=== PATIENT | female | born 1980 | race African-American/Black ===

== ENCOUNTER 2018-12-04 07:57 | Outpatient (CLI) | payer BC ==
--- NOTE | 2018-12-04 10:57 | MRI ---
LUMBAR SPINE MRI WITHOUT CONTRAST: DATE: 12/04/2018. COMPARISON: 09/26/2016. HISTORY: Lumbar radiculopathy, low back pain radiating into the right lower extremity. TECHNIQUE: Multiplanar, multisequence MR imaging of the lumbar spine provided without contrast. FINDINGS: The sagittal STIR imaging demonstrates no focal area of osseous marrow edema. Lumbar vertebral body height and alignment appears within normal limits. On the basis of 5 lumbar-type vertebral bodies, conus medullaris terminates at the L1-2 level. T12-L1: Unremarkable. L1-2: Mild bilateral facet hypertrophy with no central canal or neural foraminal stenosis. L2-3: Unremarkable aside from mild bilateral facet hypertrophy. L2-3: There is mild bilateral facet hypertrophy with no significant central canal or neural foramina l stenosis. L4-5: Mild bilateral facet hypertrophy. No central canal or neural foraminal stenosis. L5-S1: Mild facet hypertrophy on the right. No significant central canal or neural foraminal stenos is. The imaged retroperitoneal structures appear unremarkable. IMPRESSION: No significant central canal or neural foraminal stenosis. No significant interval rodriguez . POS: [facility]
== END 2018-12-04 07:58 | disposition home or self-care (01) ==
LOC: BICMRI 07:57
PROVIDERS: ATTEND Nurse Practitioner Family
DX: M54.17 Radiculopathy, lumbosacral region (principal)
CPT/HCPCS: 72148

== ENCOUNTER 2019-05-18 12:04 | Day surgery (SDC) | payer BC ==
[2019-05-17 12:22] VITALS: BMI 28.3
[2019-05-18] MEDS ORDERED: CEFAZOLIN 1 GM VIAL ONE (12:48)
[2019-05-18] MEDS ORDERED: Sodium Chloride 0.9% 100 ML ONE (12:48)
[2019-05-18] MEDS ORDERED: Bupivacaine HCl 0.5%/Epinephrine 1:200,000/PF 30 ml Vial ONE (13:31)
[2019-05-18] MEDS ORDERED: Fentanyl 100 MCG/2 ML VIAL ONE (13:33)
[2019-05-18] MEDS ORDERED: Midazolam HCl 2 mg/2 ml Vial ONE (13:33)
[2019-05-18] MEDS ORDERED: Propofol 500 MG/50 ML VIAL ONE (13:35)
[2019-05-18] MEDS ORDERED: Ketamine 50 MG/ML (10ML VIAL) ONE (13:35)
--- NOTE | 2019-05-18 16:08 | OP ---
DATE OF PROCEDURE: 05/18/2019 PREOPERATIVE DIAGNOSES: 1. Chronic pain syndrome, G89.4. 2. Complex regional pain syndrome, type 2, right lower extremity, G57.71. POSTOPERATIVE DIAGNOSES: 1. Chronic pain syndrome, G89.4. 2. Complex regional pain syndrome, type 2, right lower extremity, G57.71. PROCEDURES PERFORMED: 1. Spinal column stimulator/DRG generator implant x1. Code; 98919. 2. Spinal column stimulator/DRG lead implant x2. Code; 46637 x2. SPECIMEN REMOVED: None. ESTIMATED BLOOD LOSS: None. DESCRIPTION OF PROCEDURE: The patient was taken to the procedure room and placed prone on the procedure room table. A time-out was performed. The back was prepped with ChloraPrep, and sterile drapes were applied. Using fluoroscopies, we located the right L5 and the right S1 foramina. We used a contralateral paramedian technique with a 14-gauge supplied Touhy needle to gain access to the epidural space with loss of resistance to air. Once we gained access, we inserted the DRG electrode with sheath into the epidural space and passed it easily and smoothly through the right L5 foramen. The sheath was removed keeping the leads intact. We then performed a double loop as an anchor. We then performed the same procedure using a right S1 access and placing the DRG electrode in the S1 foramen on the right and creating a double loop as an anchor. A pocket was made by anesthetizing the skin over the left upper buttock with 0.5% Marcaine with epinephrine. We made an incision using a 10-blade scalpel and blunt dissected this down to Richy fascia. This was then blunt dissected superiorly and inferiorly to make a pocket. We used a tunneling device to make a pocket between the lead puncture sites and the pocket site. The sheath and needles were removed taking care not to move the leads. The leads were placed through the tunneling device and placed into the pocket. They were connected to the DRG battery generator and torqued down. Impedances were checked, which were all good. These were tucked into the battery pocket site, and all fascial layers were approximated using 2-0 Vicryl suture in simple interrupted fashion. The skin layer was approximated using a subcuticular stitch using a 3-0 Rapide Vicryl suture. Dermabond was used over this, and a sterile 4x4 was placed over this and taped down. Once the Dermabond was dried, the patient was taken to the PACU under stable condition. Job ID: [id number]
[2019-05-18] MEDS ORDERED: PROPOFOL 200 MG/20 ML VIAL ONE (17:21)
--- NOTE | 2019-05-18 18:40 | RAD ---
XR Lumbar Spine 2 Or 3 View History: Dorsal column stimulator placement Comparison: Radiograph October 2018 Findings: 2 images were obtained from the operating room. Impression: Fluoroscopy for surgical purposes. Total fluoroscopy time 274.4 seconds.
== END 2019-05-18 15:48 | disposition home or self-care (01) ==
LOC: SDC 12:04
PROVIDERS: ATTEND Specialist
PROC: 00HU3MZ Insertion of Neurostimulator Lead into Spinal Canal, Percutaneous Approach (ICD-10-PCS; principal; 2019-05-18)
PROC: 0JH70BZ Insertion of Single Array Stimulator Generator into Back Subcutaneous Tissue and Fascia, Open Approach (ICD-10-PCS; principal; 2019-05-18)
DX: G89.4 Chronic pain syndrome (principal); G57.71 Causalgia of right lower limb; M47.27 Other spondylosis with radiculopathy, lumbosacral region; M46.1 Sacroiliitis, not elsewhere classified; Z87.891 Personal history of nicotine dependence; Z79.899 Other long term (current) drug therapy; Z88.8 Allergy status to other drugs, medicaments and biological substances
CPT/HCPCS: 72100; 76000; 93005; 93010; C1767; J0670; J0690; J2250; J2704; J3010; J3490

== ENCOUNTER 2020-07-19 13:08 | Outpatient (CLI) | payer BC ==
--- NOTE | 2020-07-19 14:16 | CT ---
CT LUMBAR SPINE 07/19/20 PROVIDED CLINICAL HISTORY: Back pain. COMPARISON: Comparison is made with the lumbar spine MRI dated 12/04/18. FINDINGS: Five lumbar type vertebral bodies are demonstrated. Lumbar alignment appears normal. Vertebral body h eights and intervertebral disc space heights appear maintained. No lytic or blastic bony lesions are seen. Neural stimulator wires are demonstrated entering via the right L5 foramen and L5-S1 interspino us regions, with tips terminating adjacent to the right L5 and right S1 neural foramina. There is no significant central canal or foraminal narrowing. Mildly indistinct appearance to the cranberry grower nial aspects of the synovial portions of both sacroiliac joints on the axial images is felt artifactu al, without evidence for sacroiliac joint abnormality on the coronal images. The visualized extraspinal soft tissues demonstrate an unremarkable unenhanced CT appearance. IMPRESSION: No significant central canal or foraminal narrowing is apparent by CT. POS: [facility]
== END 2020-07-19 13:09 | disposition home or self-care (01) ==
LOC: BICCT 13:08
PROVIDERS: ATTEND Nurse Practitioner Family
DX: M54.17 Radiculopathy, lumbosacral region (principal)
CPT/HCPCS: 72131

== ENCOUNTER 2020-07-27 11:37 | Outpatient (CLI) | payer OTHER ==
--- NOTE | 2020-07-27 13:50 | RAD ---
LUMBAR SPINE: 07/27/20 HISTORY: Disability. COMPARISON: 10/28/18. Lumbar vertebrae maintain height and alignment. The disc spaces are normally maintained. No evidence of spondylolisthesis or spondylolysis. No interval change. Electronic device with leads overlie the L5 and S1 levels to the right of midline. IMPRESSION: Unremarkable lumbar spine. No change from prior exam. POS: [facility]
== END 2020-07-27 11:38 | disposition home or self-care (01) ==
LOC: BICRAD 11:37
PROVIDERS: ATTEND Internal Medicine
DX: Z02.71 Encounter for disability determination (principal)
CPT/HCPCS: 72100

== ENCOUNTER 2021-10-19 15:48 | Inpatient (IN) | payer BC ==
[2021-10-19] MEDS ORDERED: Naloxone HCl 2 mg/2 ml Syringe ONE (15:55)
[2021-10-19 16:19] LABS: Hemoglobin 9.6 g/dL (12.0-16.0); Mean Corpuscular HGB CONC 29.6 g/dL (32.0-36.0); Mean Corpuscular Hemoglobin 30.2 pg (27.0-31.0); Mean Platelet Volume 10.5 fL (7.4-10.4); Platelet Count 180 thou/uL (130-400); RBC Distribution Width 11.9 % (11.5-14.5); Red Blood Cell (RBC) Count 3.17 mill/uL (4.20-5.40); White Blood Cell (WBC) Count 9.1 thou/uL (4.8-10.8)
[2021-10-19 16:29] LABS: BHCG - Serum Negative (NEGATIVE); Pregs Control Background? CLEAR/WHITE (CLR/WHITE); Pregs Control Bar Appear? YES (CONTROL BAR)
[2021-10-19 16:34] LABS: Acetaminophen Less than 6.0 mcg/mL (10.0-30.0); Alcohol Less than 10 mg/dL (Less than 10); Salicylate Less than 8.0 mg/dL (15.0-30.0)
[2021-10-19 16:35] LABS: #Lymphocytes 1.2 thou/uL (1.20-3.40); #Neutrophils 6.9 thou/uL (1.40-6.50); %Basophils 0.2 % (0.0-1.0); %Eosinophils 0.3 % (0.0-10.0); %Lymphocytes 12.8 % (21.0-51.0); %Monocytes 10.5 % (0.0-10.0); %Neutrophils 76.3 % (42.0-75.0); Platelet Morphology Comment Appears Adequate; RBC Morphology Normal
[2021-10-19 16:42] LABS: Phosphorus 9.8 mg/dL (2.3-4.7)
[2021-10-19 16:48] LABS: Bilirubin Negative (Negative); Blood, Urine Negative (Negative); Clarity Clear (Clear); Glucose, Urine (Dipstick) Greater than 1000 mg/dL (Negative); Ketone, Urine 20 mg/dL (Negative); Leukocyte Negative Leu/uL (Negative); Nitrite Negative (Negative); Protein, Urine (Dipstick) Negative (Neg-Trace); Specific Gravity, Urine 1.017 (1.002-1.036); Urobilinogen Normal mg/dL (Less than 2)
[2021-10-19 16:55] LABS: Analyzer IN Cardio ER; Base Excess (BEa) -21.3 mEq/L (-2.0 to +3.0); Calcium, Ionized (arterial) 0.96 mmol/L (1.12-1.30); Carboxyhemoglobin (COHb) 0.1 gm% (0.0-3.0); Hemoglobin (Hb) 10.7 g/dL (12.0-16.0); O2 Tension (PaO2), arterial 196.6 mmHg (80.0-100.0); Potassium - ABG Lab 3.68 mmol/L (3.70-5.30)
[2021-10-19 16:57] LABS: ALV-art Gradient 58.725 mmHg (0-20); CO2 Tension 23.9 mmHg (35.0-45.0); Puncture Site LRA; pH, Arterial 7.09 (7.35-7.45)
[2021-10-19 17:00] LABS: Amphetamine Not Detected (NotDetected); Barbiturates Screen Not Detected (NotDetected); Benzodiazepine Screen Not Detected (NotDetected); Cocaine Metabolite Screen Not Detected (NotDetected); Methadone Not Detected (NotDetected); Methamphetamine Not Detected (NotDetected); Opiate Screen Not Detected (NotDetected); Oxycodone Screen Not Detected (NotDetected); Phencyclidine (PCP) Not Detected (NotDetected); THC/Cannabinoid Screen Not Detected (NotDetected); Tricyclic Screen Not Detected (NotDetected)
[2021-10-19] MEDS ORDERED: Sodium Bicarb 50 MEQ/50 ML Abboject 8.4% SYRINGE ONE (17:17)
[2021-10-19 17:25] LABS: ALT (SGPT) 19 U/L (8-55); AST (SGOT) 33 U/L (5-34); Albumin 1.9 g/dL (3.5-5.0); Alkaline Phosphatase 63 U/L (40-110); Anion Gap 38 mmol/L (10-20); BUN (Urea Nitrogen) 82 mg/dL (7.0-18.7); Bilirubin, Total 0.4 mg/dL (0.2-1.2); Calc. Creatinine Clearance 0 mL/min (70-130); Calcium 7.1 mg/dL (7.8-10.44); Carbon Dioxide 10 mmol/L (22-29); Chloride 92 mmol/L (98-107); Globulin 2.5 g/dL (2.4-3.5); Magnesium 3.5 mg/dL (1.6-2.6); Potassium 4.9 mmol/L (3.5-5.1); Protein, Total 4.4 g/dL (6.0-8.3); Sodium 135 mmol/L (136-145)
[2021-10-19 17:36] LABS: Glucose 1449 mg/dL (70-105)
[2021-10-19] MEDS ORDERED: INSULIN REGULAR IN 0.9 % NACL 100 UNIT/100 ML BAG ONE (17:49)
[2021-10-19 17:56] LABS: Lipase 3845 U/L (8-78)
[2021-10-19] MEDS ORDERED: NS 0.9% w/ 20 MEQ KCL 1,000 ML ONE (17:58)
[2021-10-19] MEDS ORDERED: Ondansetron PF 4 MG/2 ML Vial IVP PRN (18:00)
[2021-10-19] MEDS ORDERED: Ondansetron ODT 4 MG TAB SL PRN (18:00)
[2021-10-19] MEDS ORDERED: Acetaminophen 325 MG TAB PO PRN (18:00)
[2021-10-19] MEDS ORDERED: Sodium Chloride 0.9% 1,000 ML IV PRN ×4 (18:34)
[2021-10-19] MEDS ORDERED: Dextrose 5 %-0.45 % NaCl 1,000 ML IV PRN (18:34)
[2021-10-19] MEDS ORDERED: Guaifenesin DM 100-10/5 ML UDCUP PO PRN (18:34)
[2021-10-19] MEDS ORDERED: Bisacodyl 10 MG SUPP PR PRN (18:34)
[2021-10-19] MEDS ORDERED: Electrolyte Replacement Protocol 1 EACH IVPB ONE (18:34)
[2021-10-19] MEDS ORDERED: NS 0.9% w/ 20 MEQ KCL 1,000 ML IV PRN ×2 (18:34)
[2021-10-19] MEDS ORDERED: Electrolyte Replacement Protocol FS PRN (18:45)
[2021-10-19 19:16] LABS: Anion Gap 38 mmol/L (10-20); BUN (Urea Nitrogen) 79 mg/dL (7.0-18.7); Calc. Creatinine Clearance 0 mL/min (70-130); Calcium 6.9 mg/dL (7.8-10.44); Cardiac Risk 12.8 (Less than 4.5); Chloride 97 mmol/L (98-107); Cholesterol 205 mg/dl (< 200 Desired); HDL Cholesterol 16 mg/dL (>60 Neg Risk); LDL Cholesterol, Calculated 140 mg/dL; Potassium 4.6 mmol/L (3.5-5.1); Sodium 139 mmol/L (136-145); Triglycerides 245 mg/dL (Less than 150)
[2021-10-19 19:17] LABS: Lactic Acid 4.2 mmol/L (0.5-2.2)
[2021-10-19 19:18] LABS: SARS-CoV-2 NAA Rapid Test Not Detected (NotDetected)
[2021-10-19 19:22] LABS: Carbon Dioxide 9 mmol/L (22-29); Glucose 1231 mg/dL (70-105)
[2021-10-19] MEDS: Heparin 5,000 UNITS/ML VIAL SC SCH (20:23)
[2021-10-19 21:07] LABS: ALT (SGPT) 145 U/L (8-55); AST (SGOT) 360 U/L (5-34); Albumin 2.5 g/dL (3.5-5.0); Alkaline Phosphatase 89 U/L (40-110); Bilirubin, Direct 0.3 mg/dL (0.1-0.3); Bilirubin, Total 0.4 mg/dL (0.2-1.2); Glucose 961 mg/dL (70-105); Protein, Total 5.6 g/dL (6.0-8.3)
[2021-10-19 22:10] LABS: Base Excess -11.4 mEq/L (-2.0 to +3.0); Calcium, Ionized (venous) 0.91 mmol/L (1.16-1.32); Chloride (VBG) 110 mmol/L (98-106); Hemoglobin (Hb) 11.8 g/dL (11.7-15.5); Potassium (VBG) 4.26 mmol/L (3.70-5.30); Sodium 148.7 mmol/L (133-146); pH (venous) 7.34 (7.32-7.43)
[2021-10-19 22:16] LABS: Actual Bicarbonate (HCO3v) 13 mEq/L (22-28)
[2021-10-19 22:47] LABS: Anion Gap 31 mmol/L (10-20); BUN (Urea Nitrogen) 71 mg/dL (7.0-18.7); Calc. Creatinine Clearance 26 mL/min (70-130); Calcium 6.6 mg/dL (7.8-10.44); Carbon Dioxide 11 mmol/L (22-29); Chloride 110 mmol/L (98-107); Potassium 4.4 mmol/L (3.5-5.1); Sodium 148 mmol/L (136-145)
[2021-10-19 22:53] LABS: Band 26 % (5-11); Hemoglobin 11.6 g/dL (12.0-16.0); Lymphocytes 20 % (21-51); MDiff Complete? YES; Mean Corpuscular HGB CONC 33.1 g/dL (32.0-36.0); Mean Corpuscular Hemoglobin 30.5 pg (27.0-31.0); Mean Platelet Volume 10.2 fL (7.4-10.4); Neutrophil 54 % (42-75); Platelet Count 122 thou/uL (130-400); Platelet Morphology Comment Appears Decreased; RBC Distribution Width 11.8 % (11.5-14.5); Red Blood Cell (RBC) Count 3.81 mill/uL (4.20-5.40); White Blood Cell (WBC) Count 10.9 thou/uL (4.8-10.8)
[2021-10-19 22:58] LABS: Glucose 845 mg/dL (70-105)
[2021-10-19] MEDS ORDERED: Lactated Ringer's 1,000 ML IV SCH (23:00)
[2021-10-19] MEDS ORDERED: 1/2 NS w/KCL 20 mEq 1,000 ML IV SCH (23:45)
[2021-10-20 00:41] LABS: Glucose 760 mg/dL (70-105)
[2021-10-20] MEDS ORDERED: Norepinephrine 8 MG/0.9% NS 250 ML ONE (01:01)
[2021-10-20] MEDS ORDERED: Norepinephrine 8 MG/0.9% NS 250 ML IVPB SCH (01:15)
[2021-10-20 02:17] LABS: Glucose 750 mg/dL (70-105)
[2021-10-20 02:48] LABS: ALT (SGPT) 417 U/L (8-55); AST (SGOT) 1421 U/L (5-34); Albumin 2.3 g/dL (3.5-5.0); Alkaline Phosphatase 78 U/L (40-110); Anion Gap 30 mmol/L (10-20); BUN (Urea Nitrogen) 71 mg/dL (7.0-18.7); Bilirubin, Total 0.3 mg/dL (0.2-1.2); Calc. Creatinine Clearance 27 mL/min (70-130); Calcium 6.6 mg/dL (7.8-10.44); Carbon Dioxide 12 mmol/L (22-29); Chloride 112 mmol/L (98-107); Globulin 2.9 g/dL (2.4-3.5); Potassium 5.1 mmol/L (3.5-5.1); Protein, Total 5.2 g/dL (6.0-8.3); Sodium 149 mmol/L (136-145)
[2021-10-20 02:50] LABS: Glucose 780 mg/dL (70-105)
[2021-10-20 04:01] LABS: Anion Gap 29 mmol/L (10-20); BUN (Urea Nitrogen) 70 mg/dL (7.0-18.7); Calc. Creatinine Clearance 28 mL/min (70-130); Calcium 6.7 mg/dL (7.8-10.44); Carbon Dioxide 12 mmol/L (22-29); Chloride 111 mmol/L (98-107); Glucose 765 mg/dL (70-105); Potassium 5.2 mmol/L (3.5-5.1); Sodium 147 mmol/L (136-145)
[2021-10-20] MEDS: Sodium Chloride 0.45% 1,000 ML IV SCH ×6 (04:18→23:45)
[2021-10-20 04:40] LABS: Band 26 % (5-11); Lymphocytes 10 % (21-51); MDiff Complete? YES; Mean Corpuscular Hemoglobin 29.9 pg (27.0-31.0); Mean Corpuscular Volume 90.6 fL (78.0-98.0); Mean Platelet Volume 9.8 fL (7.4-10.4); Monocytes 6 % (0-10); Neutrophil 58 % (42-75); Platelet Count 152 thou/uL (130-400); RBC Distribution Width 11.7 % (11.5-14.5); Red Blood Cell (RBC) Count 3.67 mill/uL (4.20-5.40); White Blood Cell (WBC) Count 11.8 thou/uL (4.8-10.8)
[2021-10-20 05:03] LABS: Glucose 773 mg/dL (70-105)
[2021-10-20 05:11] LABS: Hemoglobin A1c Greater than 14.0 % (4.0-6.0)
[2021-10-20 05:46] LABS: Glucose 760 mg/dL (70-105)
[2021-10-20] MEDS ORDERED: Cefepime 1 GM in Sodium Chloride 0.9% 100 ML IVPB SCH (09:00)
[2021-10-20] MEDS ORDERED: FLU VACC QS2021-22(6MOS UP)/PF 60 MCG/0.5 ML SYRINGE IM ONE (09:00)
[2021-10-20] MEDS: Pantoprazole 40 MG VIAL IVP SCH (09:02)
[2021-10-20] MEDS: Heparin 5,000 UNITS/ML VIAL SC SCH ×2 (09:02→21:03)
[2021-10-20 09:13] LABS: Glucose 677 mg/dL (70-105)
[2021-10-20] MEDS ORDERED: Vancomycin HCl 1.25 GM in Premix Bag 1 BAG IVPB SCH (09:30)
[2021-10-20] MEDS ORDERED: Vancomycin HCl 1.25 GM in Sodium Chloride 0.9% 250 ML 250 ML IVPB SCH (10:00)
[2021-10-20 10:13] LABS: Glucose 633 mg/dL (70-105)
[2021-10-20 10:41] LABS: Glucose 570 mg/dL (70-105)
[2021-10-20 11:45] LABS: Anion Gap 27 mmol/L (10-20); BUN (Urea Nitrogen) 71 mg/dL (7.0-18.7); Calc. Creatinine Clearance 31 mL/min (70-130); Calcium 6.7 mg/dL (7.8-10.44); Carbon Dioxide 12 mmol/L (22-29); Chloride 115 mmol/L (98-107); Potassium 4.1 mmol/L (3.5-5.1); Sodium 150 mmol/L (136-145)
[2021-10-20 11:49] LABS: Glucose 561 mg/dL (70-105)
[2021-10-20 12:06] LABS: Lactic Acid 2.5 mmol/L (0.5-2.2)
[2021-10-20 15:51] LABS: Anion Gap 20 mmol/L (10-20); BUN (Urea Nitrogen) 67 mg/dL (7.0-18.7); Calc. Creatinine Clearance 36 mL/min (70-130); Calcium 6.9 mg/dL (7.8-10.44); Carbon Dioxide 19 mmol/L (22-29); Chloride 121 mmol/L (98-107); Glucose 308 mg/dL (70-105); Potassium 4.5 mmol/L (3.5-5.1); Sodium 155 mmol/L (136-145)
[2021-10-20] MEDS: D5 1/2 NS w/20 mEq KCL 1,000 ML IV PRN (16:15)
[2021-10-20] MEDS: Ondansetron PF 4 MG/2 ML Vial IVP PRN (16:25)
[2021-10-20] MEDS: D5 1/2 NS w/20 mEq KCL 1,000 ML IV SCH (16:36)
[2021-10-20] MEDS: HUMULIN R 100 UNITS in Sodium Chloride 0.9% 100 ML IVPB SCH (16:42)
[2021-10-20] MEDS: Fentanyl 100 MCG/2 ML VIAL SLOW IVP PRN ×2 (18:30→22:39)
[2021-10-20] MEDS: NS 0.9% w/ 20 MEQ KCL 1,000 ML IV SCH ×2 (18:55→23:44)
[2021-10-20 22:23] LABS: ALT (SGPT) 696 U/L (8-55); AST (SGOT) 2000 U/L (5-34); Albumin 2.5 g/dL (3.5-5.0); Alkaline Phosphatase 80 U/L (40-110); Anion Gap 26 mmol/L (10-20); BUN (Urea Nitrogen) 60 mg/dL (7.0-18.7); Bilirubin, Total 0.5 mg/dL (0.2-1.2); Calc. Creatinine Clearance 42 mL/min (70-130); Calcium 6.9 mg/dL (7.8-10.44); Carbon Dioxide 13 mmol/L (22-29); Chloride 122 mmol/L (98-107); Globulin 3.1 g/dL (2.4-3.5); Glucose 358 mg/dL (70-105); Potassium 4.9 mmol/L (3.5-5.1); Protein, Total 5.6 g/dL (6.0-8.3); Sodium 156 mmol/L (136-145)
[2021-10-21] MEDS: D5 1/2 NS w/20 mEq KCL 1,000 ML IV SCH ×4 (02:30→22:08)
[2021-10-21] MEDS: NS 0.9% w/ 20 MEQ KCL 1,000 ML IV SCH ×4 (03:00→17:22)
[2021-10-21] MEDS: Sodium Chloride 0.45% 1,000 ML IV SCH ×4 (03:15→16:42)
[2021-10-21 04:42] LABS: ALT (SGPT) 662 U/L (8-55); AST (SGOT) 1517 U/L (5-34); Albumin 2.5 g/dL (3.5-5.0); Alkaline Phosphatase 79 U/L (40-110); Anion Gap 26 mmol/L (10-20); BUN (Urea Nitrogen) 53 mg/dL (7.0-18.7); Bilirubin, Total 0.6 mg/dL (0.2-1.2); Calc. Creatinine Clearance 46 mL/min (70-130); Calcium 6.9 mg/dL (7.8-10.44); Carbon Dioxide 10 mmol/L (22-29); Globulin 3.6 g/dL (2.4-3.5); Glucose 348 mg/dL (70-105); Protein, Total 6.1 g/dL (6.0-8.3); Sodium 156 mmol/L (136-145)
[2021-10-21 04:47] LABS: Chloride 126 mmol/L (98-107)
[2021-10-21 05:32] LABS: Band 55 % (5-11); Lymphocytes 8 % (21-51); MDiff Complete? YES; Mean Corpuscular HGB CONC 32.1 g/dL (32.0-36.0); Mean Corpuscular Volume 93.4 fL (78.0-98.0); Mean Platelet Volume 10.1 fL (7.4-10.4); Metamyelocyte 13 % (0-0); Monocytes 11 % (0-10); Neutrophil 13 % (42-75); Platelet Count 86 thou/uL (130-400); Platelet Morphology Comment Appears Decreased; RBC Distribution Width 12.1 % (11.5-14.5); Red Blood Cell (RBC) Count 3.34 mill/uL (4.20-5.40); White Blood Cell (WBC) Count 10.3 thou/uL (4.8-10.8)
[2021-10-21] MEDS ORDERED: Magnesium 2 GM/50 ML 2 GM in Premix Bag 1 BAG IVPB SCH (05:45)
[2021-10-21 06:09] LABS: Lipase 990 U/L (8-78); Phosphorus 2.3 mg/dL (2.3-4.7)
[2021-10-21] MEDS: Cefepime 0.5 GM, Admixture Fee 1 EACH in Sodium Chloride 0.9% 100 ML IVPB SCH (08:59)
[2021-10-21] MEDS: Heparin 5,000 UNITS/ML VIAL SC SCH ×2 (08:59→22:00)
[2021-10-21] MEDS: Pantoprazole 40 MG VIAL IVP SCH (09:00)
[2021-10-21] MEDS: Fentanyl 100 MCG/2 ML VIAL SLOW IVP PRN ×3 (09:04→22:08)
[2021-10-21 10:51] LABS: Vancomycin, Random 9.4 ug/mL (See Comment)
[2021-10-21] MEDS ORDERED: Vancomycin HCl 750 MG in Sodium Chloride 0.9% 250 ML 250 ML IVPB SCH (12:00)
[2021-10-21 14:16] LABS: Anion Gap 22 mmol/L (10-20); BUN (Urea Nitrogen) 44 mg/dL (7.0-18.7); Calc. Creatinine Clearance 50 mL/min (70-130); Calcium 7.2 mg/dL (7.8-10.44); Carbon Dioxide 13 mmol/L (22-29); Glucose 258 mg/dL (70-105); Potassium 4.6 mmol/L (3.5-5.1); Sodium 159 mmol/L (136-145)
[2021-10-21 14:25] LABS: Chloride 129 mmol/L (98-107)
[2021-10-21 15:10] LABS: ALT (SGPT) 578 U/L (8-55); AST (SGOT) 1022 U/L (5-34); Albumin 2.7 g/dL (3.5-5.0); Alkaline Phosphatase 85 U/L (40-110); Anion Gap 24 mmol/L (10-20); BUN (Urea Nitrogen) 44 mg/dL (7.0-18.7); Bilirubin, Total 0.8 mg/dL (0.2-1.2); Calc. Creatinine Clearance 49 mL/min (70-130); Calcium 7.1 mg/dL (7.8-10.44); Carbon Dioxide 12 mmol/L (22-29); Chloride 130 mmol/L (98-107); Globulin 3.3 g/dL (2.4-3.5); Glucose 260 mg/dL (70-105); Potassium 4.6 mmol/L (3.5-5.1); Sodium 161 mmol/L (136-145)
[2021-10-21 22:37] LABS: ALT (SGPT) 544 U/L (8-55); AST (SGOT) 736 U/L (5-34); Albumin 2.9 g/dL (3.5-5.0); Alkaline Phosphatase 97 U/L (40-110); Anion Gap 21 mmol/L (10-20); BUN (Urea Nitrogen) 37 mg/dL (7.0-18.7); Bilirubin, Total 1.1 mg/dL (0.2-1.2); Calc. Creatinine Clearance 52 mL/min (70-130); Calcium 7.4 mg/dL (7.8-10.44); Carbon Dioxide 15 mmol/L (22-29); Chloride 131 mmol/L (98-107); Globulin 3.6 g/dL (2.4-3.5); Glucose 326 mg/dL (70-105); Potassium 4.5 mmol/L (3.5-5.1); Protein, Total 6.5 g/dL (6.0-8.3); Sodium 162 mmol/L (136-145)
[2021-10-21] MEDS ORDERED: Dextrose 5% in Water 1,000 ML IV SCH (23:15)
[2021-10-22 01:49] LABS: Anion Gap 17 mmol/L (10-20); BUN (Urea Nitrogen) 33 mg/dL (7.0-18.7); Calc. Creatinine Clearance 56 mL/min (70-130); Calcium 7.7 mg/dL (7.8-10.44); Carbon Dioxide 19 mmol/L (22-29); Chloride 130 mmol/L (98-107); Glucose 229 mg/dL (70-105); Potassium 4.4 mmol/L (3.5-5.1); Sodium 162 mmol/L (136-145)
[2021-10-22] MEDS: Sodium Chloride 0.45% 1,000 ML IV SCH ×4 (03:24→12:28)
[2021-10-22] MEDS: Fentanyl 100 MCG/2 ML VIAL SLOW IVP PRN (03:27)
[2021-10-22] MEDS: D5 1/2 NS w/20 mEq KCL 1,000 ML IV SCH (06:40)
[2021-10-22 07:44] LABS: Anion Gap 21 mmol/L (10-20); BUN (Urea Nitrogen) 28 mg/dL (7.0-18.7); Calc. Creatinine Clearance 58 mL/min (70-130); Calcium 7.6 mg/dL (7.8-10.44); Carbon Dioxide 15 mmol/L (22-29); Chloride 129 mmol/L (98-107); Glucose 254 mg/dL (70-105); Potassium 4.1 mmol/L (3.5-5.1); Sodium 161 mmol/L (136-145)
[2021-10-22] MEDS ORDERED: Dextrose 5% w/ 20 mEq KCl 1,000 ML IV SCH (08:30)
[2021-10-22] MEDS: HUMULIN R 100 UNITS in Sodium Chloride 0.9% 100 ML IVPB SCH (09:50)
[2021-10-22] MEDS: D5 1/2 NS w/20 mEq KCL 1,000 ML IV PRN ×2 (09:51→14:51)
[2021-10-22] MEDS: Pantoprazole 40 MG VIAL IVP SCH (09:51)
[2021-10-22] MEDS: Heparin 5,000 UNITS/ML VIAL SC SCH ×2 (09:55→21:10)
[2021-10-22] MEDS: Cefepime 2 GM in Sodium Chloride 0.9% 100 ML IVPB SCH ×2 (10:08→21:28)
[2021-10-22] MEDS: Cefepime 0.5 GM, Admixture Fee 1 EACH in Sodium Chloride 0.9% 100 ML IVPB SCH (12:28)
[2021-10-22] MEDS: Vancomycin HCl 1.25 GM in Sodium Chloride 0.9% 250 ML 250 ML IVPB SCH (12:53)
[2021-10-22 14:35] LABS: ALT (SGPT) 405 U/L (8-55); AST (SGOT) 329 U/L (5-34); Albumin 2.7 g/dL (3.5-5.0); Alkaline Phosphatase 95 U/L (40-110); Anion Gap 13 mmol/L (10-20); BUN (Urea Nitrogen) 21 mg/dL (7.0-18.7); Bilirubin, Total 1.3 mg/dL (0.2-1.2); Calc. Creatinine Clearance 69 mL/min (70-130); Calcium 7.4 mg/dL (7.8-10.44); Carbon Dioxide 21 mmol/L (22-29); Globulin 3.8 g/dL (2.4-3.5); Glucose 170 mg/dL (70-105); Potassium 3.5 mmol/L (3.5-5.1); Protein, Total 6.5 g/dL (6.0-8.3); Sodium 157 mmol/L (136-145)
[2021-10-22 14:38] LABS: Chloride 127 mmol/L (98-107)
[2021-10-22] MEDS: Dextrose 5% w/ 20 mEq KCl 1,000 ML IV SCH ×3 (14:50→15:46)
[2021-10-22] MEDS: Lantus 1000 UNITS/10 ML VIAL SC SCH (17:24)
[2021-10-22] MEDS ORDERED: HumaLOG 300 UNITS/3 ML VIAL SC PRN (18:37)
[2021-10-22] MEDS ORDERED: Dextrose 5% in Water 1,000 ML IV PRN (18:37)
[2021-10-22] MEDS ORDERED: Dextrose 50% Abboject 50 ML SYRINGE SLOW IVP PRN (18:37)
[2021-10-22] MEDS: HumaLOG 300 UNITS/3 ML VIAL SC SCH (19:02)
[2021-10-22 20:22] LABS: ALT (SGPT) 353 U/L (8-55); AST (SGOT) 248 U/L (5-34); Albumin 2.7 g/dL (3.5-5.0); Alkaline Phosphatase 109 U/L (40-110); Anion Gap 15 mmol/L (10-20); BUN (Urea Nitrogen) 19 mg/dL (7.0-18.7); Bilirubin, Total 1.6 mg/dL (0.2-1.2); Calc. Creatinine Clearance 70 mL/min (70-130); Calcium 7.1 mg/dL (7.8-10.44); Carbon Dioxide 17 mmol/L (22-29); Chloride 122 mmol/L (98-107); Globulin 3.9 g/dL (2.4-3.5); Glucose 282 mg/dL (70-105); Potassium 4.2 mmol/L (3.5-5.1); Protein, Total 6.6 g/dL (6.0-8.3); Sodium 150 mmol/L (136-145)
[2021-10-23] MEDS: Dextrose 5% w/ 20 mEq KCl 1,000 ML IV SCH ×3 (00:12→12:06)
[2021-10-23] MEDS: HumaLOG 300 UNITS/3 ML VIAL SC PRN ×5 (00:13→16:28)
[2021-10-23 01:38] LABS: ALT (SGPT) 325 U/L (8-55); AST (SGOT) 181 U/L (5-34); Albumin 2.6 g/dL (3.5-5.0); Alkaline Phosphatase 108 U/L (40-110); Anion Gap 17 mmol/L (10-20); BUN (Urea Nitrogen) 22 mg/dL (7.0-18.7); Bilirubin, Total 1.5 mg/dL (0.2-1.2); Calc. Creatinine Clearance 75 mL/min (70-130); Calcium 7.2 mg/dL (7.8-10.44); Carbon Dioxide 20 mmol/L (22-29); Chloride 119 mmol/L (98-107); Globulin 3.8 g/dL (2.4-3.5); Glucose 252 mg/dL (70-105); Potassium 3.6 mmol/L (3.5-5.1); Protein, Total 6.4 g/dL (6.0-8.3); Sodium 152 mmol/L (136-145)
[2021-10-23 07:58] LABS: ALT (SGPT) 286 U/L (8-55); AST (SGOT) 138 U/L (5-34); Albumin 2.7 g/dL (3.5-5.0); Alkaline Phosphatase 112 U/L (40-110); Anion Gap 17 mmol/L (10-20); BUN (Urea Nitrogen) 21 mg/dL (7.0-18.7); Bilirubin, Total 1.7 mg/dL (0.2-1.2); Calc. Creatinine Clearance 80 mL/min (70-130); Calcium 7.2 mg/dL (7.8-10.44); Carbon Dioxide 21 mmol/L (22-29); Chloride 117 mmol/L (98-107); Glucose 220 mg/dL (70-105); Potassium 4.1 mmol/L (3.5-5.1); Protein, Total 6.7 g/dL (6.0-8.3); Sodium 151 mmol/L (136-145)
[2021-10-23] MEDS: HumaLOG 300 UNITS/3 ML VIAL SC SCH ×3 (09:52→16:28)
[2021-10-23] MEDS: Cefepime 2 GM in Sodium Chloride 0.9% 100 ML IVPB SCH ×2 (09:53→20:39)
[2021-10-23] MEDS: Heparin 5,000 UNITS/ML VIAL SC SCH ×2 (09:56→20:40)
[2021-10-23] MEDS: Pantoprazole 40 MG VIAL IVP SCH (09:56)
[2021-10-23] MEDS ORDERED: Calcium Carbonate 500 MG ChewTAB PO PRN (12:18)
[2021-10-23] MEDS: Vancomycin HCl 1.25 GM in Sodium Chloride 0.9% 250 ML 250 ML IVPB SCH (12:21)
[2021-10-23 13:55] LABS: ALT (SGPT) 271 U/L (8-55); AST (SGOT) 114 U/L (5-34); Albumin 2.8 g/dL (3.5-5.0); Alkaline Phosphatase 114 U/L (40-110); Anion Gap 20 mmol/L (10-20); BUN (Urea Nitrogen) 24 mg/dL (7.0-18.7); Bilirubin, Total 1.5 mg/dL (0.2-1.2); Calc. Creatinine Clearance 70 mL/min (70-130); Calcium 7.2 mg/dL (7.8-10.44); Carbon Dioxide 14 mmol/L (22-29); Chloride 117 mmol/L (98-107); Globulin 4.5 g/dL (2.4-3.5); Glucose 268 mg/dL (70-105); Potassium 4.1 mmol/L (3.5-5.1); Protein, Total 7.3 g/dL (6.0-8.3); Sodium 147 mmol/L (136-145)
[2021-10-23 14:38] LABS: T4 7.4 ug/dL (4.87-11.72); Thyroid Stimulating Hormone 1.7564 uIU/mL (0.35-4.94)
[2021-10-23] MEDS: Ondansetron PF 4 MG/2 ML Vial IVP PRN (15:19)
[2021-10-23] MEDS: Lantus 1000 UNITS/10 ML VIAL SC SCH (16:28)
[2021-10-23] MEDS: Lactated Ringer's 1,000 ML IV SCH (20:39)
[2021-10-24] MEDS: Lactated Ringer's 1,000 ML IV SCH (05:02)
[2021-10-24] MEDS: HumaLOG 300 UNITS/3 ML VIAL SC PRN ×4 (05:39→22:32)
[2021-10-24] MEDS: Heparin 5,000 UNITS/ML VIAL SC SCH ×2 (08:24→21:08)
[2021-10-24] MEDS: HumaLOG 300 UNITS/3 ML VIAL SC SCH ×3 (08:24→17:44)
[2021-10-24] MEDS: Cefepime 2 GM in Sodium Chloride 0.9% 100 ML IVPB SCH ×2 (08:25→21:07)
[2021-10-24] MEDS: Pantoprazole 40 MG VIAL IVP SCH (08:25)
[2021-10-24 10:38] LABS: ALT (SGPT) 176 U/L (8-55); AST (SGOT) 51 U/L (5-34); Albumin 2.9 g/dL (3.5-5.0); Alkaline Phosphatase 115 U/L (40-110); Anion Gap 23 mmol/L (10-20); BUN (Urea Nitrogen) 17 mg/dL (7.0-18.7); Bilirubin, Direct 0.5 mg/dL (0.1-0.3); Bilirubin, Total 0.8 mg/dL (0.2-1.2); Calc. Creatinine Clearance 84 mL/min (70-130); Calcium 7.7 mg/dL (7.8-10.44); Carbon Dioxide 10 mmol/L (22-29); Chloride 117 mmol/L (98-107); Glucose 246 mg/dL (70-105); Potassium 3.6 mmol/L (3.5-5.1); Protein, Total 6.8 g/dL (6.0-8.3); Sodium 146 mmol/L (136-145)
[2021-10-24 10:48] LABS: Vancomycin, Trough 6.6 ug/mL
[2021-10-24] MEDS ORDERED: Vancomycin HCl 1.75 GM in Sodium Chloride 0.9% 500 ML IVPB SCH (12:00)
[2021-10-24] MEDS ORDERED: Lantus 1000 UNITS/10 ML VIAL SC SCH (17:00)
[2021-10-24 17:10] LABS: Hemoglobin 8.7 g/dL (12.0-16.0); Mean Corpuscular HGB CONC 33.6 g/dL (32.0-36.0); Mean Corpuscular Hemoglobin 29.9 pg (27.0-31.0); Mean Platelet Volume 10.6 fL (7.4-10.4); Platelet Count 97 thou/uL (130-400); White Blood Cell (WBC) Count 11.8 thou/uL (4.8-10.8)
[2021-10-24 17:26] LABS: Band 35 % (5-11); Eosinophils 1 % (0-10); Lymphocytes 24 % (21-51); MDiff Complete? YES; Monocytes 15 % (0-10); Myelocyte 1 % (0-0); Neutrophil 21 % (42-75); Platelet Morphology Comment Appears Decreased; RBC Morphology Normal; Reactive Lymphocytes 3 % (0-10)
[2021-10-24] MEDS ORDERED: Sodium Chloride 0.9% 1,000 ML IV PRN ×4 (18:44)
[2021-10-24] MEDS ORDERED: D5 1/2 NS w/20 mEq KCL 1,000 ML IV PRN (18:44)
[2021-10-24] MEDS ORDERED: Electrolyte Replacement Protocol 1 EACH IVPB ONE (18:44)
[2021-10-24] MEDS ORDERED: Dextrose 5 %-0.45 % NaCl 1,000 ML IV PRN (18:44)
[2021-10-24] MEDS ORDERED: NS 0.9% w/ 20 MEQ KCL 1,000 ML IV PRN ×2 (18:44)
[2021-10-24] MEDS ORDERED: HUMULIN R 100 UNITS in Sodium Chloride 0.9% 100 ML IVPB SCH (18:45)
[2021-10-24] MEDS ORDERED: Potassium Bicarbonate/Cit Ac 20 MEQ TAB PO SCH (19:00)
[2021-10-24] MEDS ORDERED: Electrolyte Replacement Protocol FS PRN (19:00)
[2021-10-24] MEDS ORDERED: Potassium Chloride 10 MEQ in Premix Bag 1 BAG IVPB SCH (19:00)
[2021-10-24] MEDS: Potassium Bicarbonate/Cit Ac 20 MEQ TAB PO SCH ×2 (19:33→21:06)
[2021-10-24 19:40] LABS: Anion Gap 16 mmol/L (10-20); BUN (Urea Nitrogen) 11 mg/dL (7.0-18.7); Calc. Creatinine Clearance 92 mL/min (70-130); Calcium 7.6 mg/dL (7.8-10.44); Carbon Dioxide 18 mmol/L (22-29); Chloride 111 mmol/L (98-107); Glucose 276 mg/dL (70-105); Sodium 142 mmol/L (136-145)
[2021-10-24 19:44] LABS: Potassium 2.9 mmol/L (3.5-5.1)
[2021-10-24 23:47] LABS: Anion Gap 13 mmol/L (10-20); BUN (Urea Nitrogen) 10 mg/dL (7.0-18.7); Calc. Creatinine Clearance 96 mL/min (70-130); Calcium 7.3 mg/dL (7.8-10.44); Carbon Dioxide 20 mmol/L (22-29); Chloride 114 mmol/L (98-107); Glucose 293 mg/dL (70-105); Potassium 3.1 mmol/L (3.5-5.1); Sodium 144 mmol/L (136-145)
[2021-10-24] MEDS ORDERED: Potassium Chloride 20 MEQ TAB PO SCH (23:59)
[2021-10-25] MEDS ORDERED: Potassium Chloride 20 MEQ TAB PO SCH (01:00)
[2021-10-25 07:29] LABS: Hemoglobin 7.7 g/dL (12.0-16.0); Mean Corpuscular HGB CONC 33.8 g/dL (32.0-36.0); Mean Corpuscular Volume 88.8 fL (78.0-98.0); Mean Platelet Volume 10.9 fL (7.4-10.4); Platelet Count 114 thou/uL (130-400); RBC Distribution Width 12.8 % (11.5-14.5); Red Blood Cell (RBC) Count 2.57 mill/uL (4.20-5.40); White Blood Cell (WBC) Count 11.8 thou/uL (4.8-10.8)
[2021-10-25 07:46] LABS: Anion Gap 13 mmol/L (10-20); BUN (Urea Nitrogen) 6 mg/dL (7.0-18.7); Calc. Creatinine Clearance 117 mL/min (70-130); Calcium 7.1 mg/dL (7.8-10.44); Carbon Dioxide 18 mmol/L (22-29); Chloride 115 mmol/L (98-107); Glucose 151 mg/dL (70-105); Sodium 143 mmol/L (136-145)
[2021-10-25] MEDS ORDERED: Potassium Chloride 40 MEQ in Sodium Chloride 0.9% 250 ML 250 ML IVPB SCH (08:30)
[2021-10-25] MEDS: Cefepime 2 GM in Sodium Chloride 0.9% 100 ML IVPB SCH (08:49)
[2021-10-25] MEDS: HumaLOG 300 UNITS/3 ML VIAL SC SCH ×3 (08:49→18:19)
[2021-10-25 08:50] LABS: Band 28 % (5-11); Eosinophils 1 % (0-10); Lymphocytes 38 % (21-51); MDiff Complete? YES; Metamyelocyte 4 % (0-0); Monocytes 10 % (0-10); Myelocyte 2 % (0-0); Neutrophil 16 % (42-75); Platelet Morphology Comment Appears Decreased; Polychromasia SLIGHT = 2-3 cells (100X) (0-2/hpf); Reactive Lymphocytes 1 % (0-10)
[2021-10-25] MEDS: Heparin 5,000 UNITS/ML VIAL SC SCH ×2 (08:50→20:33)
[2021-10-25] MEDS ORDERED: Lansoprazole 3 MG/ML ORAL SUSPENSION PER TUBE SCH (09:00)
[2021-10-25] MEDS ORDERED: Potassium Bicarbonate/Cit Ac 20 MEQ TAB PO SCH (09:00)
[2021-10-25 15:46] LABS: Potassium 3.2 mmol/L (3.5-5.1)
[2021-10-25] MEDS: Lantus 1000 UNITS/10 ML VIAL SC SCH (18:19)
[2021-10-25] MEDS ORDERED: Potassium Chloride 10 MEQ in Premix Bag 1 BAG IVPB SCH (18:30)
[2021-10-25] MEDS: Potassium Chloride 10 MEQ in Premix Bag 1 BAG IVPB SCH ×2 (19:56→21:10)
[2021-10-26 07:36] LABS: Anion Gap 15 mmol/L (10-20); BUN (Urea Nitrogen) 5 mg/dL (7.0-18.7); Calc. Creatinine Clearance 110 mL/min (70-130); Calcium 7.4 mg/dL (7.8-10.44); Carbon Dioxide 16 mmol/L (22-29); Chloride 113 mmol/L (98-107); Glucose 160 mg/dL (70-105); Potassium 3.6 mmol/L (3.5-5.1); Sodium 140 mmol/L (136-145)
[2021-10-26] MEDS: HumaLOG 300 UNITS/3 ML VIAL SC SCH ×3 (08:19→17:16)
[2021-10-26] MEDS: Heparin 5,000 UNITS/ML VIAL SC SCH ×2 (08:21→20:10)
[2021-10-26 08:44] LABS: Hemoglobin 7.4 g/dL (12.0-16.0); Mean Corpuscular Hemoglobin 29.9 pg (27.0-31.0); Mean Corpuscular Volume 88.1 fL (78.0-98.0); Mean Platelet Volume 10.3 fL (7.4-10.4); Platelet Count 192 thou/uL (130-400); RBC Distribution Width 13.1 % (11.5-14.5); Red Blood Cell (RBC) Count 2.46 mill/uL (4.20-5.40); White Blood Cell (WBC) Count 18.9 thou/uL (4.8-10.8)
[2021-10-26 09:05] LABS: Band 18 % (5-11); Eosinophils 2 % (0-10); Lymphocytes 20 % (21-51); MDiff Complete? YES; Metamyelocyte 3 % (0-0); Monocytes 15 % (0-10); Myelocyte 3 % (0-0); Neutrophil 39 % (42-75); Platelet Morphology Comment Appears Adequate; Polychromasia SLIGHT = 2-3 cells (100X) (0-2/hpf)
[2021-10-26] MEDS ORDERED: Iopamidol-370 76% 500 ML 1 ML ONE (11:56)
[2021-10-26 14:02] LABS: SARS-CoV-2 PCR by NAA Not Detected (NotDetected)
[2021-10-26] MEDS: Lantus 1000 UNITS/10 ML VIAL SC SCH (17:16)
[2021-10-26] MEDS: Pancrelipase DR 12,000 1 CAP PO SCH (17:17)
[2021-10-26 20:07] LABS: Hemoglobin 6.9 g/dL (12.0-16.0); Mean Corpuscular HGB CONC 34.6 g/dL (32.0-36.0); Mean Corpuscular Hemoglobin 30.2 pg (27.0-31.0); Mean Corpuscular Volume 87.3 fL (78.0-98.0); Mean Platelet Volume 9.6 fL (7.4-10.4); Platelet Count 226 thou/uL (130-400); RBC Distribution Width 12.9 % (11.5-14.5); Red Blood Cell (RBC) Count 2.29 mill/uL (4.20-5.40); White Blood Cell (WBC) Count 20.5 thou/uL (4.8-10.8)
[2021-10-26 20:26] LABS: Band 31 % (5-11); Eosinophils 3 % (0-10); Hypochromia SLIGHT = 6-15 cells (100X) (0-5/hpf); Lymphocytes 32 % (21-51); MDiff Complete? YES; Monocytes 2 % (0-10); Neutrophil 32 % (42-75); Nucleated RBC 1 % (0); Platelet Morphology Comment Appears Adequate
[2021-10-27 05:10] LABS: Anion Gap 11 mmol/L (10-20); BUN (Urea Nitrogen) 4 mg/dL (7.0-18.7); Calc. Creatinine Clearance 129 mL/min (70-130); Calcium 7.1 mg/dL (7.8-10.44); Carbon Dioxide 21 mmol/L (22-29); Chloride 112 mmol/L (98-107); Glucose 164 mg/dL (70-105); Potassium 3.1 mmol/L (3.5-5.1); Sodium 141 mmol/L (136-145)
[2021-10-27] MEDS: HumaLOG 300 UNITS/3 ML VIAL SC PRN (06:24)
[2021-10-27 07:08] LABS: Reticulocyte Count 2.8 % (0.5-1.5)
[2021-10-27] MEDS ORDERED: Potassium Bicarbonate/Cit Ac 20 MEQ TAB PO SCH (07:15)
[2021-10-27 07:26] LABS: Hemoglobin 7.4 g/dL (12.0-16.0); Mean Corpuscular HGB CONC 35.9 g/dL (32.0-36.0); Mean Corpuscular Hemoglobin 31.3 pg (27.0-31.0); Mean Corpuscular Volume 87.1 fL (78.0-98.0); RBC Distribution Width 13.6 % (11.5-14.5); Red Blood Cell (RBC) Count 2.37 mill/uL (4.20-5.40)
[2021-10-27 07:56] LABS: Mean Platelet Volume 10.6 fL (7.4-10.4); Platelet Count 285 thou/uL (130-400); Platelet Morphology Comment Appears Adequate; White Blood Cell (WBC) Count 24.4 thou/uL (4.8-10.8)
[2021-10-27 08:04] LABS: Band 14 % (5-11); Hypochromia SLIGHT = 6-15 cells (100X) (0-5/hpf); Lymphocytes 27 % (21-51); MDiff Complete? YES; Metamyelocyte 2 % (0-0); Monocytes 12 % (0-10); Myelocyte 1 % (0-0); Neutrophil 44 % (42-75); Nucleated RBC 2 % (0); Polychromasia SLIGHT = 2-3 cells (100X) (0-2/hpf); Vacuoles SLIGHT
[2021-10-27] MEDS: Acetaminophen 325 MG TAB PO PRN ×3 (09:22→22:27)
[2021-10-27] MEDS: Heparin 5,000 UNITS/ML VIAL SC SCH ×2 (09:23→20:50)
[2021-10-27] MEDS: HumaLOG 300 UNITS/3 ML VIAL SC SCH ×3 (09:28→17:52)
[2021-10-27] MEDS: Pancrelipase DR 12,000 1 CAP PO SCH ×3 (10:25→20:44)
[2021-10-27] MEDS: Lantus 1000 UNITS/10 ML VIAL SC SCH (17:54)
[2021-10-27] MEDS ORDERED: Lidocaine 5% Patch TD SCH (22:15)
[2021-10-28 05:43] LABS: Band 28 % (5-11); Hemoglobin 6.9 g/dL (12.0-16.0); Lymphocytes 20 % (21-51); MDiff Complete? YES; Mean Corpuscular HGB CONC 34.5 g/dL (32.0-36.0); Mean Corpuscular Hemoglobin 30.6 pg (27.0-31.0); Mean Corpuscular Volume 88.6 fL (78.0-98.0); Mean Platelet Volume 9.1 fL (7.4-10.4); Metamyelocyte 7 % (0-0); Monocytes 9 % (0-10); Myelocyte 3 % (0-0); Neutrophil 33 % (42-75); Platelet Count 331 thou/uL (130-400); Platelet Morphology Comment Appears Adequate; RBC Distribution Width 13.3 % (11.5-14.5); Red Blood Cell (RBC) Count 2.25 mill/uL (4.20-5.40); White Blood Cell (WBC) Count 23.6 thou/uL (4.8-10.8)
[2021-10-28 05:46] LABS: Anion Gap 11 mmol/L (10-20); BUN (Urea Nitrogen) 4 mg/dL (7.0-18.7); Calc. Creatinine Clearance 149 mL/min (70-130); Calcium 6.8 mg/dL (7.8-10.44); Carbon Dioxide 23 mmol/L (22-29); Chloride 110 mmol/L (98-107); Glucose 122 mg/dL (70-105); Sodium 141 mmol/L (136-145)
[2021-10-28 05:49] LABS: Potassium 2.6 mmol/L (3.5-5.1)
[2021-10-28] MEDS ORDERED: Calcium Gluc 4.6 MEQ/10 ML (100 MG/ML) SLOW IVP SCH (06:30)
[2021-10-28] MEDS: Potassium Chloride 20 MEQ in Premix Bag 1 BAG IVPB SCH ×6 (07:15→23:58)
[2021-10-28 07:20] LABS: Magnesium 1.3 mg/dL (1.6-2.6)
[2021-10-28] MEDS ORDERED: Magnesium Sulfate 4 GM in Sodium Chloride 0.9% 250 ML 250 ML IVPB SCH (07:45)
[2021-10-28] MEDS ORDERED: Iopamidol-370 76% 500 ML 1 ML ONE (09:16)
[2021-10-28] MEDS: Pancrelipase DR 12,000 1 CAP PO SCH ×3 (11:01→18:51)
[2021-10-28] MEDS: HumaLOG 300 UNITS/3 ML VIAL SC SCH ×3 (11:04→18:53)
[2021-10-28] MEDS: Heparin 5,000 UNITS/ML VIAL SC SCH ×2 (11:12→20:30)
[2021-10-28] MEDS: Transdermal Patch Removal TOP SCH (11:15)
[2021-10-28] MEDS: Acetaminophen 325 MG TAB PO PRN ×3 (12:15→20:29)
[2021-10-28] MEDS: Vancomycin HCl 1.25 GM in Sodium Chloride 0.9% 250 ML 250 ML IVPB SCH (15:14)
[2021-10-28 18:44] LABS: Glucose 105 mg/dL (70-105)
[2021-10-28] MEDS: Lantus 1000 UNITS/10 ML VIAL SC SCH (18:52)
[2021-10-28 19:40] LABS: Anion Gap 11 mmol/L (10-20); BUN (Urea Nitrogen) Less than 4 mg/dL (7.0-18.7); Calc. Creatinine Clearance 149 mL/min (70-130); Calcium 7.1 mg/dL (7.8-10.44); Carbon Dioxide 22 mmol/L (22-29); Chloride 108 mmol/L (98-107); Glucose 177 mg/dL (70-105); Magnesium 2.2 mg/dL (1.6-2.6); Sodium 138 mmol/L (136-145)
[2021-10-28] MEDS: Lidocaine 5% Patch TD SCH (20:29)
[2021-10-28] MEDS ORDERED: Vancomycin 1 GM in Premix Bag 1 BAG IVPB SCH (21:00)
[2021-10-28] MEDS: Cefepime 1 GM in Sodium Chloride 0.9% 100 ML IVPB SCH (21:52)
[2021-10-29] MEDS: Vancomycin HCl 1.25 GM in Sodium Chloride 0.9% 250 ML 250 ML IVPB SCH ×2 (01:27→14:33)
[2021-10-29 02:08] LABS: Glucose 156 mg/dL (70-105)
[2021-10-29] MEDS: Cefepime 1 GM in Sodium Chloride 0.9% 100 ML IVPB SCH ×4 (05:40→20:45)
[2021-10-29 05:49] LABS: Glucose 140 mg/dL (70-105)
[2021-10-29 05:52] LABS: Band 26 % (5-11); Hemoglobin 6.8 g/dL (12.0-16.0); Hypochromia SLIGHT = 6-15 cells (100X) (0-5/hpf); Lymphocytes 20 % (21-51); MDiff Complete? YES; Mean Corpuscular HGB CONC 33.1 g/dL (32.0-36.0); Mean Corpuscular Hemoglobin 29.9 pg (27.0-31.0); Mean Corpuscular Volume 90.4 fL (78.0-98.0); Mean Platelet Volume 8.2 fL (7.4-10.4); Monocytes 5 % (0-10); Neutrophil 49 % (42-75); Platelet Count 393 thou/uL (130-400); Platelet Morphology Comment Appears Adequate; RBC Distribution Width 13.9 % (11.5-14.5); Red Blood Cell (RBC) Count 2.29 mill/uL (4.20-5.40); White Blood Cell (WBC) Count 21.8 thou/uL (4.8-10.8)
[2021-10-29 05:55] LABS: Anion Gap 10 mmol/L (10-20); BUN (Urea Nitrogen) 4 mg/dL (7.0-18.7); Calc. Creatinine Clearance 152 mL/min (70-130); Calcium 7.2 mg/dL (7.8-10.44); Carbon Dioxide 20 mmol/L (22-29); Chloride 112 mmol/L (98-107); Glucose 139 mg/dL (70-105); Magnesium 1.8 mg/dL (1.6-2.6); Potassium 3.4 mmol/L (3.5-5.1); Sodium 139 mmol/L (136-145)
[2021-10-29] MEDS ORDERED: Magnesium 2 GM/50 ML 2 GM in Premix Bag 1 BAG IVPB SCH (07:00)
[2021-10-29] MEDS ORDERED: Potassium Chloride 20 MEQ TAB PO SCH (07:00)
[2021-10-29] MEDS: HumaLOG 300 UNITS/3 ML VIAL SC SCH ×3 (10:29→18:46)
[2021-10-29] MEDS: Heparin 5,000 UNITS/ML VIAL SC SCH ×2 (10:33→20:45)
[2021-10-29] MEDS: Pancrelipase DR 12,000 1 CAP PO SCH ×3 (10:35→18:47)
[2021-10-29] MEDS: Ondansetron PF 4 MG/2 ML Vial IVP PRN (10:46)
[2021-10-29] MEDS: Transdermal Patch Removal TOP SCH (10:51)
[2021-10-29 15:35] LABS: Glucose 154 mg/dL (70-105)
[2021-10-29 18:15] LABS: Glucose 180 mg/dL (70-105)
[2021-10-29] MEDS: Lantus 1000 UNITS/10 ML VIAL SC SCH (18:47)
[2021-10-29] MEDS: Lidocaine 5% Patch TD SCH (20:45)
[2021-10-29 21:32] LABS: Glucose 146 mg/dL (70-105)
[2021-10-30 01:17] LABS: Glucose 150 mg/dL (70-105)
[2021-10-30 01:19] LABS: Vancomycin, Trough 14.2 ug/mL
[2021-10-30] MEDS: Vancomycin HCl 1.25 GM in Sodium Chloride 0.9% 250 ML 250 ML IVPB SCH ×3 (01:44→23:43)
[2021-10-30 05:21] LABS: Glucose 178 mg/dL (70-105)
[2021-10-30] MEDS: Acetaminophen 325 MG TAB PO PRN ×2 (05:24→23:43)
[2021-10-30] MEDS: Cefepime 1 GM in Sodium Chloride 0.9% 100 ML IVPB SCH (05:26)
[2021-10-30 05:28] LABS: #Basophils 0.1 thou/uL (0.0-0.2); #Eosinphils 0.3 thou/uL (0.0-0.7); #Lymphocytes 5.6 thou/uL (1.20-3.40); #Monocytes 1.4 thou/uL (0.11-0.59); %Basophils 0.5 % (0.0-1.0); %Eosinophils 1.5 % (0.0-10.0); %Lymphocytes 27.6 % (21.0-51.0); %Monocytes 6.7 % (0.0-10.0); %Neutrophils 63.8 % (42.0-75.0); Hemoglobin 7.5 g/dL (12.0-16.0); Mean Corpuscular HGB CONC 32.9 g/dL (32.0-36.0); Mean Corpuscular Volume 91.1 fL (78.0-98.0); Mean Platelet Volume 7.8 fL (7.4-10.4); Platelet Count 441 thou/uL (130-400); RBC Distribution Width 14.7 % (11.5-14.5); Red Blood Cell (RBC) Count 2.49 mill/uL (4.20-5.40); White Blood Cell (WBC) Count 19.7 thou/uL (4.8-10.8)
[2021-10-30 05:29] LABS: Anion Gap 13 mmol/L (10-20); BUN (Urea Nitrogen) Less than 4 mg/dL (7.0-18.7); Calc. Creatinine Clearance 140 mL/min (70-130); Calcium 7.3 mg/dL (7.8-10.44); Carbon Dioxide 18 mmol/L (22-29); Chloride 112 mmol/L (98-107); Glucose 178 mg/dL (70-105); Magnesium 1.6 mg/dL (1.6-2.6); Potassium 3.6 mmol/L (3.5-5.1); Sodium 139 mmol/L (136-145)
[2021-10-30] MEDS: HumaLOG 300 UNITS/3 ML VIAL SC PRN (05:32)
[2021-10-30] MEDS ORDERED: Magnesium 2 GM/50 ML 2 GM in Premix Bag 1 BAG IVPB SCH (07:00)
[2021-10-30] MEDS: Pancrelipase DR 12,000 1 CAP PO SCH ×3 (08:49→17:39)
[2021-10-30] MEDS: Heparin 5,000 UNITS/ML VIAL SC SCH ×2 (08:49→20:53)
[2021-10-30] MEDS: Transdermal Patch Removal TOP SCH (08:50)
[2021-10-30 09:07] LABS: Glucose 152 mg/dL (70-105)
[2021-10-30] MEDS: HumaLOG 300 UNITS/3 ML VIAL SC SCH ×3 (09:33→17:41)
[2021-10-30 12:22] LABS: Glucose 120 mg/dL (70-105)
[2021-10-30] MEDS: Cefepime 2 GM in Sodium Chloride 0.9% 100 ML IVPB SCH ×2 (15:03→20:52)
[2021-10-30 17:26] LABS: Glucose 112 mg/dL (70-105)
[2021-10-30] MEDS: Lantus 1000 UNITS/10 ML VIAL SC SCH (17:41)
[2021-10-30 20:44] LABS: Glucose 223 mg/dL (70-105)
[2021-10-30] MEDS: Lidocaine 5% Patch TD SCH (20:52)
[2021-10-31] MEDS: Cefepime 2 GM in Sodium Chloride 0.9% 100 ML IVPB SCH ×2 (06:15→16:57)
[2021-10-31 06:19] LABS: Anion Gap 13 mmol/L (10-20); BUN (Urea Nitrogen) 4 mg/dL (7.0-18.7); Band 7 % (5-11); Calc. Creatinine Clearance 142 mL/min (70-130); Calcium 7.5 mg/dL (7.8-10.44); Carbon Dioxide 18 mmol/L (22-29); Chloride 109 mmol/L (98-107); Glucose 177 mg/dL (70-105); Glucose 179 mg/dL (70-105); Hemoglobin 7.1 g/dL (12.0-16.0); Hypochromia SLIGHT = 6-15 cells (100X) (0-5/hpf); Lymphocytes 30 % (21-51); MDiff Complete? YES; Magnesium 1.6 mg/dL (1.6-2.6); Mean Corpuscular HGB CONC 32.9 g/dL (32.0-36.0); Mean Corpuscular Hemoglobin 30.5 pg (27.0-31.0); Mean Corpuscular Volume 92.7 fL (78.0-98.0); Mean Platelet Volume 7.4 fL (7.4-10.4); Monocytes 6 % (0-10); Neutrophil 57 % (42-75); Platelet Count 446 thou/uL (130-400); Platelet Morphology Comment Appears Increased; Potassium 3.4 mmol/L (3.5-5.1); RBC Distribution Width 15.6 % (11.5-14.5); Red Blood Cell (RBC) Count 2.32 mill/uL (4.20-5.40); Sodium 137 mmol/L (136-145); White Blood Cell (WBC) Count 16.7 thou/uL (4.8-10.8)
[2021-10-31 06:22] LABS: Glucose 181 mg/dL (70-105)
[2021-10-31] MEDS ORDERED: Potassium Chloride 20 MEQ TAB PO SCH (08:15)
[2021-10-31] MEDS ORDERED: Magnesium 2 GM/50 ML 2 GM in Premix Bag 1 BAG IVPB SCH (08:15)
[2021-10-31] MEDS: HumaLOG 300 UNITS/3 ML VIAL SC SCH ×3 (09:39→18:01)
[2021-10-31 09:40] LABS: Anisocytosis MODERATE=16-30 cells (100X) (0-5/hpf); Eosinophils 1 % (0-10); Metamyelocyte 2 % (0-0); Myelocyte 1 % (0-0); Nucleated RBC 4 % (0); Polychromasia MARKED = >4 cells (100X) (0-2/hpf)
[2021-10-31] MEDS: Pancrelipase DR 12,000 1 CAP PO SCH ×3 (09:40→18:01)
[2021-10-31] MEDS: Transdermal Patch Removal TOP SCH (09:41)
[2021-10-31] MEDS: Heparin 5,000 UNITS/ML VIAL SC SCH ×2 (09:45→21:03)
[2021-10-31 12:01] LABS: Glucose 174 mg/dL (70-105)
[2021-10-31 13:39] LABS: Glucose 138 mg/dL (70-105)
[2021-10-31 13:43] LABS: Vancomycin, Trough 13.4 ug/mL
[2021-10-31] MEDS: Vancomycin HCl 1.25 GM in Sodium Chloride 0.9% 250 ML 250 ML IVPB SCH (16:57)
[2021-10-31] MEDS: Lantus 1000 UNITS/10 ML VIAL SC SCH (18:02)
[2021-10-31] MEDS: Acetaminophen 325 MG TAB PO PRN (21:02)
[2021-10-31] MEDS: Lidocaine 5% Patch TD SCH (21:03)
[2021-11-01 06:31] LABS: Anion Gap 12 mmol/L (10-20); BUN (Urea Nitrogen) 5 mg/dL (7.0-18.7); Calc. Creatinine Clearance 136 mL/min (70-130); Carbon Dioxide 22 mmol/L (22-29); Chloride 108 mmol/L (98-107); Glucose 172 mg/dL (70-105); Potassium 3.5 mmol/L (3.5-5.1); Sodium 138 mmol/L (136-145)
[2021-11-01 06:51] LABS: Band 6 % (5-11); Eosinophils 3 % (0-10); Hemoglobin 7.9 g/dL (12.0-16.0); Lymphocytes 47 % (21-51); MDiff Complete? YES; Mean Corpuscular HGB CONC 33.4 g/dL (32.0-36.0); Mean Corpuscular Hemoglobin 30.9 pg (27.0-31.0); Mean Corpuscular Volume 92.5 fL (78.0-98.0); Mean Platelet Volume 7.2 fL (7.4-10.4); Metamyelocyte 3 % (0-0); Monocytes 5 % (0-10); Myelocyte 3 % (0-0); Neutrophil 33 % (42-75); Nucleated RBC 3 % (0); Platelet Count 430 thou/uL (130-400); Platelet Morphology Comment Appears Increased; Polychromasia MODERATE = 3-4 cells (100X) (0-2/hpf); RBC Distribution Width 17.7 % (11.5-14.5); Red Blood Cell (RBC) Count 2.57 mill/uL (4.20-5.40); Stomatocytes SLIGHT = 2-5 cells (100X) (0-1/hpf); White Blood Cell (WBC) Count 11.6 thou/uL (4.8-10.8)
[2021-11-01] MEDS ORDERED: Potassium Chloride 20 MEQ TAB PO SCH (09:00)
[2021-11-01] MEDS: Pancrelipase DR 12,000 1 CAP PO SCH ×2 (09:28→13:33)
[2021-11-01] MEDS: Heparin 5,000 UNITS/ML VIAL SC SCH (09:28)
[2021-11-01] MEDS: HumaLOG 300 UNITS/3 ML VIAL SC SCH ×2 (09:28→13:15)
[2021-11-01] MEDS: Transdermal Patch Removal TOP SCH (09:39)
[2021-11-01] MEDS: Acetaminophen 325 MG TAB PO PRN (10:29)
[2021-11-01 13:37] VITALS: BMI 31.2
[2021-11-01 13:42] VITALS: BP 94/60; TEMP 98.4
[2021-11-01 15:39] LABS: ANA Symphony (Qualitative) Negative (Negative); ANA Symphony (Quantitative) 0.4 Ratio (< 0.7 Negative); dsDNA IgG Antibody 1.4 IU/mL (<10 Negative)
[2021-11-01 19:10] LABS: CCP IgG Antibody 4.9 EliAU/mL (<7 Negative); EliA RAS New Method **** NEW METHOD ****; Rheumatoid Factor IgA Antibody 8.6 IU/mL (<14 Negative); Rheumatoid Factor IgM Antibody Less than 0.5 IU/mL (<3.5 Negative)
== END 2021-11-01 15:22 | disposition home or self-care (01) | DRG 438 ==
LOC: ERS 15:48 → CCU 18:18 → NEURO 10-24 16:39 → IMCU/EMU 10-24 20:21 → 2NO 10-26 20:35 → T4-A 10-31 16:00
PROVIDERS: ADMIT Internal Medicine; ATTEND Internal Medicine
PROC: 3E033XZ Introduction of Vasopressor into Peripheral Vein, Percutaneous Approach (ICD-10-PCS; principal; 2021-10-20)
DX: K85.90 Acute pancreatitis without necrosis or infection, unspecified (principal); E10.11 Type 1 diabetes mellitus with ketoacidosis with coma; G93.41 Metabolic encephalopathy; R57.1 Hypovolemic shock; K72.00 Acute and subacute hepatic failure without coma; N17.9 Acute kidney failure, unspecified; E87.2 Acidosis; E87.1 Hypo-osmolality and hyponatremia; Z20.822 Contact with and (suspected) exposure to COVID-19; E87.0 Hyperosmolality and hypernatremia; I12.9 Hypertensive chronic kidney disease with stage 1 through stage 4 chronic kidney disease, or unspecified chronic kidney disease; F32.A Depression, unspecified; M54.9 Dorsalgia, unspecified; G89.29 Other chronic pain; E83.39 Other disorders of phosphorus metabolism; E87.5 Hyperkalemia; N18.30 Chronic kidney disease, stage 3 unspecified; D63.1 Anemia in chronic kidney disease; K86.89 Other specified diseases of pancreas; K76.0 Fatty (change of) liver, not elsewhere classified; E10.22 Type 1 diabetes mellitus with diabetic chronic kidney disease; E66.9 Obesity, unspecified; Z68.31 Body mass index [BMI] 31.0-31.9, adult; Z79.899 Other long term (current) drug therapy; Z88.8 Allergy status to other drugs, medicaments and biological substances
CPT/HCPCS: 36415; 36416; 36600; 51702; 70450; 71045; 71250; 74160; 74177; 76705; 80048; 80053; 80061; 80076; 80202; 80306; 80307; 81003; 82010; 82247; 82248; 82805; 83010; 83036; 83520; 83525; 83605; 83615; 83690; 83735; 83880; 83930; 84100; 84305; 84436; 84439; 84443; 84479; 84681; 84703; 85025; 85046; 85060; 85652; 86038; 86140; 86200; 86225; 86341; 87040; 87086; 93005; 93306; 94760; 96365; 96374; 96375; 96376; 99292; C9113; J0610; J0692; J1644; J1815; J2310; J2405; J3010; J3370; J3475; J3480; J3490; J7030; J7050; J7070; J7120; Q9967; U0002; U0003; U0005

== ENCOUNTER 2025-05-03 17:00 | Emergency (ER) | payer BC ==
[~2025-05-03 17:00] MED LIST: Iopamidol-370 76% 500 ML MDV (1 ML CHARGE) ONE
[2025-05-03 19:24] LABS: #Basophils 0.04 10x3/uL (0.0-0.2); #Eosinophils 0.10 10x3/uL (0.0-0.7); #Monocytes 0.72 10x3/uL (0.11-0.59); #Neutrophils 6.84 10x3/uL (1.40-6.50); %Basophils 0.4 % (0.0-1.0); %Eosinophils 1.0 % (0.0-10.0); %Lymphocytes 23.2 % (21.0-51.0); %Monocytes 7.2 % (0.0-10.0); %Neutrophils 67.9 % (42.0-75.0); Hematocrit 38.5 % (36.0-47.0); Hemoglobin 12.9 g/dL (12.0-16.0); Mean Corpuscular Hemoglobin 29.7 pg (27.0-31.0); Mean Corpuscular Volume 88.5 fL (78.0-98.0); Platelet Count 331 10x3/uL (130-400); Red Blood Cell (RBC) Count 4.35 mill/uL (4.20-5.40); White Blood Cell (WBC) Count 10.06 10x3/uL (4.8-10.8)
[2025-05-03 19:43] LABS: BHCG - Serum Negative (NEGATIVE); Pregs Control Background? CLEAR/WHITE (CLR/WHITE); Pregs Control Bar Appear? YES (CONTROL BAR)
[2025-05-03 19:50] LABS: ALT (SGPT) 12 U/L (Less than 34); AST (SGOT) 24 U/L (11-34); Albumin 3.8 g/dL (3.1-4.5); Alkaline Phosphatase 52 U/L (40-110); Anion Gap 13 mmol/L (10-20); BUN (Urea Nitrogen) 9 mg/dL (7.0-18.7); Bilirubin, Total 0.5 mg/dL (0.3-1.2); Calc. Creatinine Clearance 0 mL/min (70-130); Calcium 8.3 mg/dL (7.8-10.44); Carbon Dioxide 23 mmol/L (22-29); Chloride 107 mmol/L (98-107); Globulin 4.0 g/dL (2.4-3.5); Glucose 115 mg/dL (70-105); Lipase 192 U/L (8-78); Potassium 3.8 mmol/L (3.5-5.1); Sodium 139 mmol/L (136-145)
[2025-05-03] MEDS ORDERED: Ondansetron PF 4 MG/2 ML Vial ONE (20:28)
[2025-05-03] MEDS ORDERED: Ketorolac Tromethamine 30 MG (1 mL) VIAL ONE (20:35)
[2025-05-03 21:12] LABS: CAUTI Indications for Culture Pelvic or flank pain; Glucose, Urine (Dipstick) Normal (Negative); Leukocyte Negative Leu/uL (Negative); Protein, Urine (Dipstick) Negative (Neg-Trace); RBC/HPF 0-3 HPF (0-3); Specific Gravity, Urine 1.014 (1.002-1.036)
[2025-05-03 21:30] LABS: Bacteria/HPF 2+ HPF (None Seen)
[2025-05-03 21:31] LABS: Urine Culture Reflex No No
== END 2025-05-03 22:28 | disposition home or self-care (01) ==
LOC: ERS 17:00
DX: R11.2 Nausea with vomiting, unspecified (principal); R74.8 Abnormal levels of other serum enzymes; E11.9 Type 2 diabetes mellitus without complications; Z79.4 Long term (current) use of insulin
CPT/HCPCS: 71045; 74177; 76705; 80053; 81001; 83690; 84484; 84703; 85025; 93005; 96374; 96375; J1885; J2270; J2405; Q9967